=== PATIENT | female | born 1945 | race African-American/Black ===

== ENCOUNTER 2020-09-14 22:58 | Observation (INO) | payer MEDICARE ==
[~2020-09-14] VITALS: Ht 157.5 cm; Wt 59.7 kg
--- NOTE | 2020-09-14 23:13 | ED.ADGEN ---
General Adult HPI: HPI: Patient is a 75 year old female brought in by EMS for multiple complaints. 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 Patient states she also felt more short of breath. Says the pain is gone right now. Patient has a history of CAD with stents and an implanted pacemakerdefibrillator, hypertension, diabetes, and possibly COPD. Patient still a smoker. States she has been hydrating well throughout the day Review of Systems: Review of Systems: All other systems within normal limits except for as noted in the HPI Current Medications: Current Medications Medications (Trade) Dose Ordered Sig/Edmar Start Time Stop Time Status Last Admin Dose Admin Acetaminophen (Tylenol) 650 mg PRN Q4HRS PRN 09/15/20 01:15 09/16/20 01:14 Fentanyl Citrate (Fentanyl 2ml Vial) 50 mcg PRN Q1HR PRN 09/15/20 01:15 09/16/20 01:14 Ondansetron HCl (Zofran) 4 mg PRN Q8HRS PRN 09/15/20 01:15 09/16/20 01:14 Sodium Chloride 1,000 ml @ 1,000 mls/hr 1X ONCE 09/15/20 00:00 09/15/20 00:59 DC 09/14/20 23:55 1,000 MLS/HR Allergies: Allergies: Allergies Coded Allergies Type Severity Reaction Last Updated Verified No Known Drug Allergies 09/14/20 No Physical Exam: PE: Constitutional: Well developed, well nourished, no acute distress, non-toxic appearance. [] HENT: Normocephalic, atraumatic, bilateral external ears normal, nose normal. [] Eyes: PERRLA, conjunctiva normal, no discharge. [] Neck: No rigidity, supple, no stridor. [] Cardiovascular: Regular rate and rhythm, brisk cap refill [] Lungs & Thorax: Non labored symmetric respirations, no tachypnea or respiratory distress [] Abdomen: Soft, nondistended, epigastric tenderness. Skin: Warm, dry, no erythema, no rash. [] Back: Unremarkable Extremities: No deformities, range of motion grossly intact, no lower extremity edema [] Neurologic: Alert and oriented X 3, no focal deficits noted. [] Psychologic: Affect normal, judgement normal, mood normal. [] Current Patient Data: Labs: Laboratory Tests Test 09/14/20 23:15 09/15/20 00:23 White Blood Count 4.8 x10^3/uL (4.0-11.0) Red Blood Count 2.93 x10^6/uL (3.50-5.40) L Hemoglobin 8.7 g/dL (12.0-15.5) L Hematocrit 26.3 % (36.0-47.0) L Mean Corpuscular Volume 90 fL (79-100) Mean Corpuscular Hemoglobin 30 pg (25-35) Mean Corpuscular Hemoglobin Concent 33 g/dL (31-37) Red Cell Distribution Width 15.5 % (11.5-14.5) H Platelet Count 249 x10^3/uL (140-400) Neutrophils (%) (Auto) 64 % (31-73) Lymphocytes (%) (Auto) 26 % (24-48) Monocytes (%) (Auto) 7 % (0-9) Eosinophils (%) (Auto) 2 % (0-3) Basophils (%) (Auto) 1 % (0-3) Neutrophils # (Auto) 3.1 x10^3/uL (1.8-7.7) Lymphocytes # (Auto) 1.2 x10^3/uL (1.0-4.8) Monocytes # (Auto) 0.4 x10^3/uL (0.0-1.1) Eosinophils # (Auto) 0.1 x10^3/uL (0.0-0.7) Basophils # (Auto) 0.1 x10^3/uL (0.0-0.2) Sodium Level 144 mmol/L (136-145) Potassium Level 3.5 mmol/L (3.5-5.1) Chloride Level 106 mmol/L (98-107) Carbon Dioxide Level 23 mmol/L (21-32) Anion Gap 15 (6-14) H Blood Urea Nitrogen 24 mg/dL (7-20) H Creatinine 2.0 mg/dL (0.6-1.0) H Estimated GFR (Cockcroft-Gault) 24.3 BUN/Creatinine Ratio 12 (6-20) Glucose Level 117 mg/dL (70-99) H Calcium Level 8.6 mg/dL (8.5-10.1) Magnesium Level 1.8 mg/dL (1.8-2.4) Total Bilirubin 0.3 mg/dL (0.2-1.0) Aspartate Amino Transferase (AST) 12 U/L (15-37) L Alanine Aminotransferase (ALT) 12 U/L (14-59) L Alkaline Phosphatase 42 U/L (46-116) L Troponin I Quantitative < 0.017 ng/mL (0.000-0.055) FM-Czl-K-Type Natriuretic Peptide 1025 pg/mL (0-449) H Total Protein 7.1 g/dL (6.4-8.2) Albumin 3.7 g/dL (3.4-5.0) Albumin/Globulin Ratio 1.1 (1.0-1.7) Lipase 90 U/L (73-393) Prothrombin Time 29.0 SEC (11.7-14.0) H Prothrombin Time INR 2.8 (0.8-1.1) H D-Dimer (Mary) < 0.27 ug/mlFEU Laboratory Tests 09/14/20 23:15 Laboratory Tests 09/14/20 23:15 Vital Signs: Vital Signs Date Time Temp Pulse Resp B/P (MAP) Pulse Ox O2 Delivery O2 Flow Rate FiO2 09/15/20 01:39 62 30 134/63 (86) 99 Room Air 09/14/20 23:00 99.3 99.3 EKG: EKG: Sinus rhythm, left axis deviation, heart rate 70 bpm, multiple PVCs, ST depression and T wave inversions in V5 V6 [] Heart Score: C/O Chest Pain: No HEART Score for Chest Pain: HEART Score for Chest Pain Response (Comments) Value History Slighlty/Non-Suspicious 0 ECG Nonspecific Repolarizatio 1 Age > 65 2 Risk Factors >3 Risk Factors or Hx CAD 2 Troponin < Normal Limit 0 Total 5 Risk Factors: Risk Factors: DM, Current or recent (<one month) smoker, HTN, HLP, family history of CAD, obesity. Risk Scores: Score 0 - 3: 2.5% MACE over next 6 weeks - Discharge Home Score 4 - 6: 20.3% MACE over next 6 weeks - Admit for Clinical Observation Score 7 - 10: 72.7% MACE over next 6 weeks - Early Invasive Strategies Radiology/Procedures: Radiology/Procedures: [facility] [address] [place] [address] IMAGING REPORT Signed PATIENT: JAYLYN BREWER ACCOUNT: [id number] : 1945 LOCATION: ER AGE: 75 SEX: F EXAM STATUS: REG ER ORD. PHYSICIAN: KENTON BURNETT MD REASON: epigastric pain PROCEDURE: ACUTE ABDOMEN SERIES EXAMINATION: XR ABDOMEN COMP ACUTE CLINICAL HISTORY: Epigastric pain EXAM DATE/TIME: 09/15/2020 1:07 AM COMPARISON: None FINDINGS: Lines, Tubes, and Devices: Left-sided dual-chamber biventricular cardiac pacemaker/ICD. Cardiomediastinal Silhouette: Normal heart size. Aortic atherosclerotic calcification. Lungs and Pleura: No evidence of focal airspace consolidation or pleural effusion. Pulmonary vasculature unremarkable. Old calcified granulomatous disease. Bones and Soft Tissues: Median sternotomy wires and paramediastinal surgical clips. Incomplete posterior vertebral fusion at multiple levels of the upper thoracic spine. Thoracolumbar degenerative changes. Abdomen: Nonobstructive bowel gas pattern. No evidence of pneumoperitoneum or suspicious abdominal calcifications. IMPRESSION: Nonobstructive bowel gas pattern. No evidence of acute cardiopulmonary abnormality. Electronically signed by: Ron Ma DO (09/15/2020 2:13 AM) [facility] DICTATED and SIGNED BY: RON MA DO DATE: 09/15/20 [id number] [] Course & Med Decision Making: Course & Med Decision Making Pertinent Labs and Imaging studies reviewed. (See chart for details) [] Limited for observation due to near syncopal episode happened during exertion in the setting of heart failure and anemia Dragon Disclaimer: Dragon Disclaimer: This electronic medical record was generated, in whole or in part, using a voice recognition dictation system. Departure Departure Impression: Primary Impression: Near syncope Disposition: ADMITTED INPATIENT Admitting Physician: FROY Condition: STABLE KENTON BURNETT MD Sep 14, 2020 23:13
[2020-09-14 23:28] LABS: BASO # 0.1 x10^3/uL (0.0-0.2); BASO % 1 % (0-3); EOS # 0.1 x10^3/uL (0.0-0.7); EOS % 2 % (0-3); HEMATOCRIT 26.3 % (36.0-47.0); HEMOGLOBIN 8.7 g/dL (12.0-15.5); LYMPH # 1.2 x10^3/uL (1.0-4.8); LYMPH % 26 % (24-48); MEAN CORPUSCULAR HEMOGLOBIN 30 pg (25-35); MEAN CORPUSCULAR HGB CONC 33 g/dL (31-37); MEAN CORPUSCULAR VOLUME 90 fL (79-100); MONO # 0.4 x10^3/uL (0.0-1.1); MONO % 7 % (0-9); NEUT # 3.1 x10^3/uL (1.8-7.7); NEUT % 64 % (31-73); PLATELET COUNT 249 x10^3/uL (140-400); RED BLOOD COUNT 2.93 x10^6/uL (3.50-5.40); RED CELL DISTRIBUTION WIDTH 15.5 % (11.5-14.5); WHITE BLOOD COUNT 4.8 x10^3/uL (4.0-11.0)
[2020-09-14 23:34] LABS: CALCIUM 8.6 mg/dL (8.5-10.1); GFR 24.3; POTASSIUM 3.5 mmol/L (3.5-5.1)
[2020-09-14 23:40] LABS: ALBUMIN 3.7 g/dL (3.4-5.0); ALBUMIN/GLOBULIN RATIO 1.1 (1.0-1.7); MAGNESIUM 1.8 mg/dL (1.8-2.4); TOTAL BILIRUBIN 0.3 mg/dL (0.2-1.0); TOTAL PROTEIN 7.1 g/dL (6.4-8.2)
--- NOTE | 2020-09-14 23:59 | EKG ---
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
[2020-09-15] MEDS ORDERED: IV NORMAL SALINE 1000ML BAG 1,000 ML IV ONE
[2020-09-15 00:45] LABS: D-DIMER < 0.27 ug/mlFEU (0.00-0.50)
[2020-09-15] MEDS ORDERED: ONDANSETRON PF 4 MG/2 ML VIAL. IV PRN (01:15)
[2020-09-15] MEDS ORDERED: ACETAMINOPHEN 325 MG TABLET. PO PRN ×2 (01:15→07:15)
[2020-09-15] MEDS ORDERED: fentaNYL PF VIAL 100 MCG/2 ML VIAL IV PRN (01:15)
--- NOTE | 2020-09-15 02:15 | RAD ---
EXAMINATION: XR ABDOMEN COMP ACUTE CLINICAL HISTORY: Epigastric pain EXAM DATE/TIME: 09/15/2020 1:07 AM COMPARISON: None FINDINGS: Lines, Tubes, and Devices: Left-sided dual-chamber biventricular cardiac pacemaker/ICD. Cardiomediastinal Silhouette: Normal heart size. Aortic atherosclerotic calcification. Lungs and Pleura: No evidence of focal airspace consolidation or pleural effusion. Pulmonary vasculat ure unremarkable. Old calcified granulomatous disease. Bones and Soft Tissues: Median sternotomy wires and paramediastinal surgical clips. 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 Thoracolumbar degenerative villanueva es. Abdomen: Nonobstructive bowel gas pattern. No evidence of pneumoperitoneum or suspicious abdominal ca lcifications. IMPRESSION: Nonobstructive bowel gas pattern. No evidence of acute cardiopulmonary abnormality. Electronically signed by: Ron Timmons DO (09/15/2020 2:13 AM) [facility]
--- NOTE | 2020-09-15 07:00 | PDOC1 ---
History and Physical Date of Admission Date of Admission DATE: 09/15/20 TIME: 06:53 Identification/Chief Complaint Chief Complaint Near syncope Source Source: Chart review, Patient History of Present Illness History of Present Illness Patient 75-year-old female past medical history DE, CAD with ICD, HTN, DM 2, presents to the ED for evaluation after near syncopal episode yesterday. He states she was working outside yesterday and walking up a hill when she began to feel dizzy, nauseous, and lightheaded. She reports some associated vomiting x1, but states she did not lose consciousness. He states she was hydrating throughout the day yesterday. She does report chronic back pain and did have one episode of left-sided chest pain, she states is not uncommon for her. Labs in ED showed hemoglobin 8.7, hematocrit 26.3, BUN 24, creatinine 2.0, CBG 117, BNP 1025, and troponins 0.017x2. EKG shows sinus rhythm, PVC, and evidence of prior anterior septal myocardial damage. Acute abdominal series showed nonobstructive bowel gas pattern and no evidence of acute cardiopulmonary abnormality. She received IV fluids in the ED and admitted for further medical management. Past Medical History Past Medical History DE, CAD with pacemaker, HTN, DM 2 Family History Family History: Coronary Artery Disease Social History Smoke: <1 pack per day ALCOHOL: occassional Drugs: None Current Medications Current Medications Current Medications Sodium Chloride 1,000 ml @ 1,000 mls/hr 1X ONCE IV Last administered on 09/14/20at 23:55; Start 09/15/20 at 00:00; Stop 09/15/20 at 00:59; Status DC Ondansetron HCl (Zofran) 4 mg PRN Q8HRS PRN IV NAUSEA/VOMITING; Start 09/15/20 at 01:15; Stop 09/16/20 at 01:14 Fentanyl Citrate (Fentanyl 2ml Vial) 50 mcg PRN Q1HR PRN IV PAIN; Start 09/15/20 at 01:15; Stop 09/16/20 at 01:14 Acetaminophen (Tylenol) 650 mg PRN Q4HRS PRN PO FEVER > 100.3'F; Start 09/15/20 at 01:15; Stop 09/16/20 at 01:14 Allergies Allergies: Coded Allergies: No Known Drug Allergies (Unverified , 09/14/20) ROS Review of System GENERAL: No history of weight change, weakness or fevers. SKIN: No bruising, hair changes or rashes. EYES: No blurred, double or loss of vision. NOSE AND THROAT: No history of nosebleeds, hoarseness or sore throat. HEART: Denies chest pain, denies palpitations. LUNGS: Denies cough, hemoptysis, wheezing or shortness of breath. GASTROINTESTINAL: Nausea, vomiting, abdominal pain. GENITOURINARY: Denies dysuria, frequency, urgency, hematuria. NEUROLOGIC: Dizziness and lightheadedness. Denies history of numbness, tingling, tremor or weakness. PSYCHIATRIC: Denies anxiety, denies depression. ENDOCRINE: No history of heat or cold intolerance, polyuria or polydipsia. EXTREMITIES: Denies muscle weakness, joint pain, pain on walking or stiffness. Physical Exam Physical Exam General: Alert, Oriented X3, Cooperative, No acute distress HEENT: PERRLA, EOMI Lungs: Clear to auscultation, Normal air movement Heart: RRR, systolic murmur, pacemakerdefibrillator to left chest wall Cardiovascular: S1, S2 Abdomen: Normal bowel sounds, Soft, No tenderness Extremities: No clubbing, No cyanosis Skin: No rashes, No significant lesion Neuro: Normal speech, Normal tone, Sensation intact Psych/Mental Status: Mental status NL, Mood NL Vitals Vitals Vital Signs Date Time Temp Pulse Resp B/P (MAP) Pulse Ox O2 Delivery O2 Flow Rate FiO2 09/15/20 03:54 54 13 131/59 (83) 97 Room Air 09/14/20 23:00 99.3 99.3 Labs Labs Laboratory Tests Test 09/14/20 23:15 09/15/20 00:23 09/15/20 04:50 White Blood Count 4.8 x10^3/uL (4.0-11.0) Red Blood Count 2.93 x10^6/uL (3.50-5.40) Hemoglobin 8.7 g/dL (12.0-15.5) Hematocrit 26.3 % (36.0-47.0) Mean Corpuscular Volume 90 fL (79-100) Mean Corpuscular Hemoglobin 30 pg (25-35) Mean Corpuscular Hemoglobin Concent 33 g/dL (31-37) Red Cell Distribution Width 15.5 % (11.5-14.5) Platelet Count 249 x10^3/uL (140-400) Neutrophils (%) (Auto) 64 % (31-73) Lymphocytes (%) (Auto) 26 % (24-48) Monocytes (%) (Auto) 7 % (0-9) Eosinophils (%) (Auto) 2 % (0-3) Basophils (%) (Auto) 1 % (0-3) Neutrophils # (Auto) 3.1 x10^3/uL (1.8-7.7) Lymphocytes # (Auto) 1.2 x10^3/uL (1.0-4.8) Monocytes # (Auto) 0.4 x10^3/uL (0.0-1.1) Eosinophils # (Auto) 0.1 x10^3/uL (0.0-0.7) Basophils # (Auto) 0.1 x10^3/uL (0.0-0.2) Sodium Level 144 mmol/L (136-145) Potassium Level 3.5 mmol/L (3.5-5.1) Chloride Level 106 mmol/L (98-107) Carbon Dioxide Level 23 mmol/L (21-32) Anion Gap 15 (6-14) Blood Urea Nitrogen 24 mg/dL (7-20) Creatinine 2.0 mg/dL (0.6-1.0) Estimated GFR (Cockcroft-Gault) 24.3 BUN/Creatinine Ratio 12 (6-20) Glucose Level 117 mg/dL (70-99) Calcium Level 8.6 mg/dL (8.5-10.1) Magnesium Level 1.8 mg/dL (1.8-2.4) Total Bilirubin 0.3 mg/dL (0.2-1.0) Aspartate Amino Transf (AST/SGOT) 12 U/L (15-37) Alanine Aminotransferase (ALT/SGPT) 12 U/L (14-59) Alkaline Phosphatase 42 U/L (46-116) Troponin I Quantitative < 0.017 ng/mL (0.000-0.055) < 0.017 ng/mL (0.000-0.055) SK-Yer-U-Type Natriuretic Peptide 1025 pg/mL (0-449) Total Protein 7.1 g/dL (6.4-8.2) Albumin 3.7 g/dL (3.4-5.0) Albumin/Globulin Ratio 1.1 (1.0-1.7) Lipase 90 U/L (73-393) Prothrombin Time 29.0 SEC (11.7-14.0) Prothromb Time International Ratio 2.8 (0.8-1.1) D-Dimer (Mary) < 0.27 ug/mlFEU Laboratory Tests Test 09/14/20 23:15 09/15/20 00:23 09/15/20 04:50 White Blood Count 4.8 x10^3/uL (4.0-11.0) Red Blood Count 2.93 x10^6/uL (3.50-5.40) Hemoglobin 8.7 g/dL (12.0-15.5) Hematocrit 26.3 % (36.0-47.0) Mean Corpuscular Volume 90 fL (79-100) Mean Corpuscular Hemoglobin 30 pg (25-35) Mean Corpuscular Hemoglobin Concent 33 g/dL (31-37) Red Cell Distribution Width 15.5 % (11.5-14.5) Platelet Count 249 x10^3/uL (140-400) Neutrophils (%) (Auto) 64 % (31-73) Lymphocytes (%) (Auto) 26 % (24-48) Monocytes (%) (Auto) 7 % (0-9) Eosinophils (%) (Auto) 2 % (0-3) Basophils (%) (Auto) 1 % (0-3) Neutrophils # (Auto) 3.1 x10^3/uL (1.8-7.7) Lymphocytes # (Auto) 1.2 x10^3/uL (1.0-4.8) Monocytes # (Auto) 0.4 x10^3/uL (0.0-1.1) Eosinophils # (Auto) 0.1 x10^3/uL (0.0-0.7) Basophils # (Auto) 0.1 x10^3/uL (0.0-0.2) Sodium Level 144 mmol/L (136-145) Potassium Level 3.5 mmol/L (3.5-5.1) Chloride Level 106 mmol/L (98-107) Carbon Dioxide Level 23 mmol/L (21-32) Anion Gap 15 (6-14) Blood Urea Nitrogen 24 mg/dL (7-20) Creatinine 2.0 mg/dL (0.6-1.0) Estimated GFR (Cockcroft-Gault) 24.3 BUN/Creatinine Ratio 12 (6-20) Glucose Level 117 mg/dL (70-99) Calcium Level 8.6 mg/dL (8.5-10.1) Magnesium Level 1.8 mg/dL (1.8-2.4) Total Bilirubin 0.3 mg/dL (0.2-1.0) Aspartate Amino Transf (AST/SGOT) 12 U/L (15-37) Alanine Aminotransferase (ALT/SGPT) 12 U/L (14-59) Alkaline Phosphatase 42 U/L (46-116) Troponin I Quantitative < 0.017 ng/mL (0.000-0.055) < 0.017 ng/mL (0.000-0.055) FZ-Asz-K-Type Natriuretic Peptide 1025 pg/mL (0-449) Total Protein 7.1 g/dL (6.4-8.2) Albumin 3.7 g/dL (3.4-5.0) Albumin/Globulin Ratio 1.1 (1.0-1.7) Lipase 90 U/L (73-393) Prothrombin Time 29.0 SEC (11.7-14.0) Prothromb Time International Ratio 2.8 (0.8-1.1) D-Dimer (Mary) < 0.27 ug/mlFEU Images Images PATIENT: JAYLYN BREWER ACCOUNT: [id number] : 1945 LOCATION: ER AGE: 75 SEX: F EXAM STATUS: REG ER ORD. PHYSICIAN: KENTON BURNETT MD REASON: epigastric pain PROCEDURE: ACUTE ABDOMEN SERIES EXAMINATION: XR ABDOMEN COMP ACUTE CLINICAL HISTORY: Epigastric pain EXAM DATE/TIME: 09/15/2020 1:07 AM COMPARISON: None FINDINGS: Lines, Tubes, and Devices: Left-sided dual-chamber biventricular cardiac pacemaker/ICD. Cardiomediastinal Silhouette: Normal heart size. Aortic atherosclerotic calcification. Lungs and Pleura: No evidence of focal airspace consolidation or pleural effusion. Pulmonary vasculature unremarkable. Old calcified granulomatous disease. Bones and Soft Tissues: Median sternotomy wires and paramediastinal surgical clips. Incomplete posterior vertebral fusion at multiple levels of the upper thoracic spine. Thoracolumbar degenerative changes. Abdomen: Nonobstructive bowel gas pattern. No evidence of pneumoperitoneum or suspicious abdominal calcifications. IMPRESSION: Nonobstructive bowel gas pattern. No evidence of acute cardiopulmonary abnormality. VTE Prophylaxis Ordered VTE Prophylaxis Devices: No VTE Pharmacological Prophylaxi: Yes Assessment/Plan Assessment/Plan Near syncope CAD History of DE Renal insufficiency HTN Plan: Troponins have been negative x2; will continue to trend. Consultation placed to cardiology. Obtain echocardiogram to further evaluate Suspect vasovagal etiology Unknown baseline kidney function; will continue to hydrate Resume home medications FEN - Cardiac diet PPX - Heparin FULL CODE Dispo - OBS for above Advance Care Planning: Total time spent [id number] with patient 16 minutes in discussion with goals of care, comfort care, end-of-life care, pain management, code status; patient names her daughter (Rishabh Mon) as surrogate decision-maker. Justifications for Admission Other Justification JOVANI ECHOLS MD Sep 15, 2020 07:00
[2020-09-15] MEDS ORDERED: MAGNESIUM HYDROXIDE 2,400 MG/30 ML ORAL.SUSP. PO PRN (07:15)
[2020-09-15] MEDS ORDERED: ONDANSETRON PF 4 MG/2 ML VIAL. IVP PRN (07:15)
[2020-09-15] MEDS ORDERED: CALCIUM CARBONATE 500 MG TAB.CHEW PO PRN (07:15)
[2020-09-15] MEDS ORDERED: MAG HYDROX/ALUMINUM HYD/SIMETH 30 ML ORAL.SUSP PO PRN (07:15)
[2020-09-15] MEDS ORDERED: HYDROcodone/APAP 5/325MG 1 TAB TABLET PO PRN (07:15)
[2020-09-15 08:30] VITALS: BP 127/67
[2020-09-15] MEDS ORDERED: HEPARIN for SUB-Q USE 5,000 UNIT/ML VIAL. SQ SCH (09:00)
[2020-09-15 10:32] LABS: CALCIUM 8.3 mg/dL (8.5-10.1); CREATININE 1.3 mg/dL (0.6-1.0); GFR 48.3; POTASSIUM 3.8 mmol/L (3.5-5.1)
[2020-09-15 11:00] VITALS: BP_SYST 102; BP_SYST 104; BP_SYST 110; BP_DIAS 49; BP_DIAS 55; BP_DIAS 57
--- NOTE | 2020-09-15 11:38 | PDOC2 ---
CONSULT Date of Consult Date of Consult DATE: 09/15/20 TIME: 11:38 Reason for Consult Reason for Consult: Near syncope Referring Physician Referring Physician: Dr. Hamilton Identification/Chief Complaint Chief Complaint Near syncope Source Source: Chart review, Patient History of Present Illness Reason for Visit: 75-year-old female with history of coronary artery disease s/p coronary artery bypass surgery, ischemic cardiomyopathy s/p AICD implantation 10 years ago with more recent generator change 2 months ago, usually followed by Dr. Claude Singer with [facility] apparently was started walking uphill after working outside in the heat and began feeling dizzy, nauseous, had an episode of vomiting and had near syncope. She denied any syncope near syncope in the past. She also denied any chest pain, orthopnea/PND or palpitations. She denied any ICD firing episodes. Past Medical History Past Medical History Coronary artery disease s/p coronary artery bypass surgery 10 years ago Ischemic cardiomyopathy s/p AICD implantation 10 years ago with more recent generator change 2 months ago Hypertension ? Paroxysmal atrial fibrillation since patient is on Xarelto Chronic kidney disease Past Surgical History Past Surgical History Coronary artery bypass surgery AICD implantation Family History Family History: Coronary Artery Disease Social History <1 pack per day ALCOHOL: occassional Drugs: None Current Medications Current Medications Current Medications Sodium Chloride 1,000 ml @ 1,000 mls/hr 1X ONCE IV Last administered on 09/14/20at 23:55; Start 09/15/20 at 00:00; Stop 09/15/20 at 00:59; Status DC Ondansetron HCl (Zofran) 4 mg PRN Q8HRS PRN IV NAUSEA/VOMITING; Start 09/15/20 at 01:15; Stop 09/15/20 at 07:31; Status DC Fentanyl Citrate (Fentanyl 2ml Vial) 50 mcg PRN Q1HR PRN IV PAIN; Start 09/15/20 at 01:15; Stop 09/16/20 at 01:14 Acetaminophen (Tylenol) 650 mg PRN Q4HRS PRN PO FEVER > 100.3'F; Start 09/15/20 at 01:15; Stop 09/15/20 at 07:31; Status DC Ondansetron HCl (Zofran) 4 mg PRN Q6HRS PRN IVP NAUSEA/VOMITING; Start 09/15/20 at 07:15 Al Hydroxide/Mg Hydroxide (Mylanta Plus Xs) 30 ml PRN Q3HRS PRN PO HEARTBURN / GAS; Start 09/15/20 at 07:15 Calcium Carbonate/ Glycine (Tums) 500 mg PRN Q3HRS PRN PO UPSET STOMACH; Start 09/15/20 at 07:15 Acetaminophen/ Hydrocodone Bitart (Lortab 5/325) 1 tab PRN Q4HRS PRN PO MILD PAIN 1-3; Start 09/15/20 at 07:15 Acetaminophen (Tylenol) 650 mg PRN Q6HRS PRN PO Headaches, Temp > 101.5F; Start 09/15/20 at 07:15 Magnesium Hydroxide (Milk Of Magnesia) 2,400 mg PRN Q12HR PRN PO CONSTIPATION; Start 09/15/20 at 07:15 Heparin Sodium (Porcine) (Heparin Sodium) 5,000 unit Q12HR SQ ; Start 09/15/20 at 09:00 Allergies Allergies: Coded Allergies: No Known Drug Allergies (Unverified , 09/14/20) ROS PSYCHOLOGICAL ROS: No: Hallucinations Eyes: No Loss of vision HEENT: No: Epistaxis Respiratory: No: Hemoptysis, Shortness of breath Gastrointestinal: No Vomiting Genitourinary: No Hematuria Neurological: No Seizures Skin: No Rash Physical Exam General: Alert, Oriented X3 HEENT: Atraumatic Lungs: Clear to auscultation Heart: Regular rate Abdomen: Soft Extremities: No edema Neuro: Normal speech Psych/Mental Status: Mood NL Vitals VITALS Vital Signs Date Time Temp Pulse Resp B/P (MAP) Pulse Ox O2 Delivery O2 Flow Rate FiO2 09/15/20 08:30 97.9 53 16 127/67 (87) 93 Room Air 97.9 Labs Labs Laboratory Tests Test 09/14/20 23:15 09/15/20 00:23 09/15/20 04:50 09/15/20 09:45 White Blood Count 4.8 x10^3/uL (4.0-11.0) Red Blood Count 2.93 x10^6/uL (3.50-5.40) Hemoglobin 8.7 g/dL (12.0-15.5) Hematocrit 26.3 % (36.0-47.0) Mean Corpuscular Volume 90 fL (79-100) Mean Corpuscular Hemoglobin 30 pg (25-35) Mean Corpuscular Hemoglobin Concent 33 g/dL (31-37) Red Cell Distribution Width 15.5 % (11.5-14.5) Platelet Count 249 x10^3/uL (140-400) Neutrophils (%) (Auto) 64 % (31-73) Lymphocytes (%) (Auto) 26 % (24-48) Monocytes (%) (Auto) 7 % (0-9) Eosinophils (%) (Auto) 2 % (0-3) Basophils (%) (Auto) 1 % (0-3) Neutrophils # (Auto) 3.1 x10^3/uL (1.8-7.7) Lymphocytes # (Auto) 1.2 x10^3/uL (1.0-4.8) Monocytes # (Auto) 0.4 x10^3/uL (0.0-1.1) Eosinophils # (Auto) 0.1 x10^3/uL (0.0-0.7) Basophils # (Auto) 0.1 x10^3/uL (0.0-0.2) Sodium Level 144 mmol/L (136-145) 144 mmol/L (136-145) Potassium Level 3.5 mmol/L (3.5-5.1) 3.8 mmol/L (3.5-5.1) Chloride Level 106 mmol/L (98-107) 108 mmol/L (98-107) Carbon Dioxide Level 23 mmol/L (21-32) 24 mmol/L (21-32) Anion Gap 15 (6-14) 12 (6-14) Blood Urea Nitrogen 24 mg/dL (7-20) 21 mg/dL (7-20) Creatinine 2.0 mg/dL (0.6-1.0) 1.3 mg/dL (0.6-1.0) Estimated GFR (Cockcroft-Gault) 24.3 48.3 BUN/Creatinine Ratio 12 (6-20) Glucose Level 117 mg/dL (70-99) 100 mg/dL (70-99) Calcium Level 8.6 mg/dL (8.5-10.1) 8.3 mg/dL (8.5-10.1) Magnesium Level 1.8 mg/dL (1.8-2.4) Total Bilirubin 0.3 mg/dL (0.2-1.0) Aspartate Amino Transf (AST/SGOT) 12 U/L (15-37) Alanine Aminotransferase (ALT/SGPT) 12 U/L (14-59) Alkaline Phosphatase 42 U/L (46-116) Troponin I Quantitative < 0.017 ng/mL (0.000-0.055) < 0.017 ng/mL (0.000-0.055) < 0.017 ng/mL (0.000-0.055) PG-Oiu-Y-Type Natriuretic Peptide 1025 pg/mL (0-449) Total Protein 7.1 g/dL (6.4-8.2) Albumin 3.7 g/dL (3.4-5.0) Albumin/Globulin Ratio 1.1 (1.0-1.7) Lipase 90 U/L (73-393) Prothrombin Time 29.0 SEC (11.7-14.0) Prothromb Time International Ratio 2.8 (0.8-1.1) D-Dimer (Mary) < 0.27 ug/mlFEU Laboratory Tests Test 09/14/20 23:15 09/15/20 00:23 09/15/20 04:50 09/15/20 09:45 White Blood Count 4.8 x10^3/uL (4.0-11.0) Red Blood Count 2.93 x10^6/uL (3.50-5.40) Hemoglobin 8.7 g/dL (12.0-15.5) Hematocrit 26.3 % (36.0-47.0) Mean Corpuscular Volume 90 fL (79-100) Mean Corpuscular Hemoglobin 30 pg (25-35) Mean Corpuscular Hemoglobin Concent 33 g/dL (31-37) Red Cell Distribution Width 15.5 % (11.5-14.5) Platelet Count 249 x10^3/uL (140-400) Neutrophils (%) (Auto) 64 % (31-73) Lymphocytes (%) (Auto) 26 % (24-48) Monocytes (%) (Auto) 7 % (0-9) Eosinophils (%) (Auto) 2 % (0-3) Basophils (%) (Auto) 1 % (0-3) Neutrophils # (Auto) 3.1 x10^3/uL (1.8-7.7) Lymphocytes # (Auto) 1.2 x10^3/uL (1.0-4.8) Monocytes # (Auto) 0.4 x10^3/uL (0.0-1.1) Eosinophils # (Auto) 0.1 x10^3/uL (0.0-0.7) Basophils # (Auto) 0.1 x10^3/uL (0.0-0.2) Sodium Level 144 mmol/L (136-145) 144 mmol/L (136-145) Potassium Level 3.5 mmol/L (3.5-5.1) 3.8 mmol/L (3.5-5.1) Chloride Level 106 mmol/L (98-107) 108 mmol/L (98-107) Carbon Dioxide Level 23 mmol/L (21-32) 24 mmol/L (21-32) Anion Gap 15 (6-14) 12 (6-14) Blood Urea Nitrogen 24 mg/dL (7-20) 21 mg/dL (7-20) Creatinine 2.0 mg/dL (0.6-1.0) 1.3 mg/dL (0.6-1.0) Estimated GFR (Cockcroft-Gault) 24.3 48.3 BUN/Creatinine Ratio 12 (6-20) Glucose Level 117 mg/dL (70-99) 100 mg/dL (70-99) Calcium Level 8.6 mg/dL (8.5-10.1) 8.3 mg/dL (8.5-10.1) Magnesium Level 1.8 mg/dL (1.8-2.4) Total Bilirubin 0.3 mg/dL (0.2-1.0) Aspartate Amino Transf (AST/SGOT) 12 U/L (15-37) Alanine Aminotransferase (ALT/SGPT) 12 U/L (14-59) Alkaline Phosphatase 42 U/L (46-116) Troponin I Quantitative < 0.017 ng/mL (0.000-0.055) < 0.017 ng/mL (0.000-0.055) < 0.017 ng/mL (0.000-0.055) QA-Cpe-X-Type Natriuretic Peptide 1025 pg/mL (0-449) Total Protein 7.1 g/dL (6.4-8.2) Albumin 3.7 g/dL (3.4-5.0) Albumin/Globulin Ratio 1.1 (1.0-1.7) Lipase 90 U/L (73-393) Prothrombin Time 29.0 SEC (11.7-14.0) Prothromb Time International Ratio 2.8 (0.8-1.1) D-Dimer (Mary) < 0.27 ug/mlFEU Assessment/Plan Assessment/Plan 1. Near syncope, most probably vasovagal. Telemetry did not show any significant arrhythmias so far. Continue intravenous hydration. 2. Coronary artery disease s/p coronary artery bypass surgery 10 years ago, presently stable and chest pain-free. Cardiac enzymes negative. Continue c urrent secondary prevention measures. 3. Ischemic cardiomyopathy, chronic systolic heart failure s/p AICD implantation 10 years ago with more recent generator change 2 months ago. We will obtain records from [facility]. 4. ? Paroxysmal atrial fibrillation since patient is on Xarelto. Patient could not give any history of cardiac arrhythmias. We will review records when available from [facility]. EKG showed atrial paced rhythm. 5. Diabetes mellitus type 2: Treat per IM Thank you for your consultation DIONI CANDELARIA MD Sep 15, 2020 11:38
[2020-09-15 15:00] VITALS: BP 111/64
[2020-09-15] MEDS ORDERED: ACETAMINOPHEN/CODEINE 300/30MG TABLET. PO PRN (15:45)
[2020-09-15] MEDS ORDERED: traMADol 50 MG TABLET PO PRN (15:45)
[2020-09-15] MEDS: CARVEDILOL 6.25 MG TABLET. PO SCH (16:52)
[2020-09-15] MEDS ORDERED: RIVAROXABAN 10 MG TABLET. PO SCH (17:00)
[2020-09-15] MEDS: ALBUTEROL SULFATE 2.5 MG/3 ML NEBU. NEB SCH ×2 (17:54→20:26)
[2020-09-15 19:00] VITALS: BP 105/55
[2020-09-15 23:05] VITALS: BP 104/60
[2020-09-16 03:14] VITALS: BP 123/70
[2020-09-16 05:07] LABS: BASO % 1 % (0-3); EOS # 0.1 x10^3/uL (0.0-0.7); EOS % 4 % (0-3); HEMATOCRIT 23.6 % (36.0-47.0); HEMOGLOBIN 7.6 g/dL (12.0-15.5); LYMPH # 1.3 x10^3/uL (1.0-4.8); LYMPH % 43 % (24-48); MEAN CORPUSCULAR HEMOGLOBIN 29 pg (25-35); MEAN CORPUSCULAR HGB CONC 32 g/dL (31-37); MEAN CORPUSCULAR VOLUME 90 fL (79-100); MONO # 0.3 x10^3/uL (0.0-1.1); MONO % 11 % (0-9); NEUT # 1.2 x10^3/uL (1.8-7.7); NEUT % 42 % (31-73); PLATELET COUNT 211 x10^3/uL (140-400); RED BLOOD COUNT 2.62 x10^6/uL (3.50-5.40); RED CELL DISTRIBUTION WIDTH 15.9 % (11.5-14.5); WHITE BLOOD COUNT 2.9 x10^3/uL (4.0-11.0)
[2020-09-16 05:24] LABS: CALCIUM 8.1 mg/dL (8.5-10.1); CREATININE 1.3 mg/dL (0.6-1.0); GFR 48.3; POTASSIUM 3.4 mmol/L (3.5-5.1); TOTAL BILIRUBIN 0.3 mg/dL (0.2-1.0)
[2020-09-16] MEDS: ALBUTEROL SULFATE 2.5 MG/3 ML NEBU. NEB SCH ×2 (07:09→11:25)
--- NOTE | 2020-09-16 07:41 | PDOC ---
[employer] PROGRESS NOTE Date of Service DOS: DATE: 09/16/20 TIME: 07:32 Chief Complaint Chief Complaint Near syncope CAD History of MD Renal insufficiency HTN Plan: Troponins have been negative x2; will continue to trend. Consultation placed to cardiology. Obtain echocardiogram to further evaluate Suspect vasovagal etiology Unknown baseline kidney function; will continue to hydrate Resume home medications FEN - Cardiac diet PPX - Heparin FULL CODE Dispo - OBS for above Advance Care Planning: Total time spent [id number] with patient 16 minutes in discussion with goals of care, comfort care, end-of-life care, pain management, code status; patient names her daughter (Rishabh Mon) as surrogate decision-maker. History of Present Illness History of Present Illness Patient 75-year-old female past medical history MD, CAD with ICD, HTN, DM 2, presents to the ED for evaluation after near syncopal episode yesterday. He states she was working outside yesterday and walking up a hill when she began to feel dizzy, nauseous, and lightheaded. She reports some associated vomiting x1, but states she did not lose consciousness. He states she was hydrating throughout the day yesterday. She does report chronic back pain and did have one episode of left-sided chest pain, she states is not uncommon for her. Labs in ED showed hemoglobin 8.7, hematocrit 26.3, BUN 24, creatinine 2.0, CBG 117, BNP 1025, and troponins 0.017x2. EKG shows sinus rhythm, PVC, and evidence of prior anterior septal myocardial damage. Acute abdominal series showed nonobstructive bowel gas pattern and no evidence of acute cardiopulmonary abnormality. She received IV fluids in the ED and admitted for further medical management. 09/16/2020: Afebrile. Patient states she feels as though her defibrillator fired this morning, similar to how she felt yesterday prior to coming to the ER. Kidney function appears to be stable at CKD III. Echocardiogram pending. Barring cardiology recommendations, she could potentially discharge today if checked out. Orthostatic vitals negative. Will have PT ambulate with patient to evaluate safety. Vitals/I&O Vitals/I&O: Vital Signs Date Time Temp Pulse Resp B/P (MAP) Pulse Ox O2 Delivery O2 Flow Rate FiO2 09/16/20 07:16 Room Air 6/27/21 07:09 99 09/16/20 03:14 98.0 54 18 123/70 (87) 98.0 I & O 09/15/20 09/15/20 09/16/20 15:00 23:00 07:00 Intake Total 300 ml 300 ml Output Total 0 ml Balance 300 ml 300 ml 0 ml Physical Exam General: Alert, Oriented X3, Cooperative, No acute distress Heart: Other (Bradycardic) Lungs: Clear Abdomen: Normal bowel sounds, Soft, No tenderness Extremities: No clubbing, No cyanosis Skin: No rashes, No breakdown Labs Labs: Laboratory Tests Test 09/15/20 09:45 09/16/20 04:30 Sodium Level 144 mmol/L (136-145) 142 mmol/L (136-145) Potassium Level 3.8 mmol/L (3.5-5.1) 3.4 mmol/L (3.5-5.1) Chloride Level 108 mmol/L (98-107) 107 mmol/L (98-107) Carbon Dioxide Level 24 mmol/L (21-32) 23 mmol/L (21-32) Anion Gap 12 (6-14) 12 (6-14) Blood Urea Nitrogen 21 mg/dL (7-20) 23 mg/dL (7-20) Creatinine 1.3 mg/dL (0.6-1.0) 1.3 mg/dL (0.6-1.0) Estimated GFR (Cockcroft-Gault) 48.3 48.3 Glucose Level 100 mg/dL (70-99) 123 mg/dL (70-99) Calcium Level 8.3 mg/dL (8.5-10.1) 8.1 mg/dL (8.5-10.1) Troponin I Quantitative < 0.017 ng/mL (0.000-0.055) White Blood Count 2.9 x10^3/uL (4.0-11.0) Red Blood Count 2.62 x10^6/uL (3.50-5.40) Hemoglobin 7.6 g/dL (12.0-15.5) Hematocrit 23.6 % (36.0-47.0) Mean Corpuscular Volume 90 fL (79-100) Mean Corpuscular Hemoglobin 29 pg (25-35) Mean Corpuscular Hemoglobin Concent 32 g/dL (31-37) Red Cell Distribution Width 15.9 % (11.5-14.5) Platelet Count 211 x10^3/uL (140-400) Neutrophils (%) (Auto) 42 % (31-73) Lymphocytes (%) (Auto) 43 % (24-48) Monocytes (%) (Auto) 11 % (0-9) Eosinophils (%) (Auto) 4 % (0-3) Basophils (%) (Auto) 1 % (0-3) Neutrophils # (Auto) 1.2 x10^3/uL (1.8-7.7) Lymphocytes # (Auto) 1.3 x10^3/uL (1.0-4.8) Monocytes # (Auto) 0.3 x10^3/uL (0.0-1.1) Eosinophils # (Auto) 0.1 x10^3/uL (0.0-0.7) Basophils # (Auto) 0.0 x10^3/uL (0.0-0.2) BUN/Creatinine Ratio 18 (6-20) Total Bilirubin 0.3 mg/dL (0.2-1.0) Aspartate Amino Transf (AST/SGOT) 13 U/L (15-37) Alanine Aminotransferase (ALT/SGPT) 11 U/L (14-59) Alkaline Phosphatase 40 U/L (46-116) Total Protein 6.0 g/dL (6.4-8.2) Albumin 3.0 g/dL (3.4-5.0) Albumin/Globulin Ratio 1.0 (1.0-1.7) Comment Review of Relevant I have reviewed the following items berna (where applicable) has been applied. Medications: Current Medications Medications (Trade) Dose Ordered Sig/Edmar Route PRN Reason Start Time Stop Time Status Last Admin Dose Admin Heparin Sodium (Porcine) (Heparin Sodium) 5,000 unit Q12HR SQ 09/15/20 09:00 09/15/20 16:34 DC 09/15/20 14:55 Albuterol Sulfate (Ventolin Neb Soln) 2.5 mg RTQID NEB 09/15/20 16:00 09/16/20 07:09 Justifications for Admission Other Justification JOVANI ECHOLS MD Sep 16, 2020 07:41
[2020-09-16 07:59] VITALS: BP 123/65
[2020-09-16] MEDS: CARVEDILOL 6.25 MG TABLET. PO SCH (08:00)
--- NOTE | 2020-09-16 08:58 | NUR ---
This RN spoke with irma Pollard's daughter on the phone with pt present. irma Pollard's daughter stated that she would like pt to be transferred to [facility], as that is where the pt normally goes. This RN informed Latrice that pt would have to sign out AMA if the doctor does not place a discharge order. She verbalizes understanding and is okay with pt signing out AMA. This RN also informed the pt that if she signs out AMA, she would not receive discharge instructions, etc. Potential risks also discussed with pt. Pt verbalizes understanding. Dr. Hamilton notified that pt is requesting to leave AMA. Dr. Hamilton stated that pt may be discharged today pending cardiology's input. Addendum: 09/16/20 at 1032 by ALANIS GUZMÁN RN Pt seen/examined by Dr. Hamilton. Pt agreeable to wait and be evaluated by cardiology.
[2020-09-16] MEDS ORDERED: FUROSEMIDE 80 MG TABLET. PO SCH (09:00)
[2020-09-16] MEDS ORDERED: FAMOTIDINE 20 MG TABLET. PO SCH (09:00)
--- NOTE | 2020-09-16 10:25 | NUR ---
This RN notified Dr. Hamilton in person that pt had a seven beat run of vtach. Awaiting cardiology input.
--- NOTE | 2020-09-16 10:39 | PDOC ---
PROGRESS NOTES Date of Service: DATE: 09/16/20 TIME: 10:38 Subjective Subjective No new complaints Objective Objective Vital Signs Date Time Temp Pulse Resp B/P (MAP) Pulse Ox O2 Delivery O2 Flow Rate FiO2 09/16/20 08:20 Room Air 09/16/20 08:00 50 09/16/20 07:59 98.1 28 123/65 (84) 97 98.1 Intake and Output 09/16/20 07:00 Intake Total 600 ml Output Total 0 ml Balance 600 ml Intake Oral 600 ml Output Urine Total 0 ml Physical Exam Abdomen: Soft Heart: Regular rate Extremities: No edema General: Alert, Oriented X3 HEENT: Atraumatic Lungs: Clear to auscultation Neuro: Normal speech Psych/Mental Status: Mood NL Skin: No rashes, No breakdown Assessment Assessment 1. Near syncope, most probably vasovagal. Telemetry did not show any significant arrhythmias so far. 2. Coronary artery disease s/p coronary artery bypass surgery 10 years ago, presently stable and chest pain-free. Cardiac enzymes negative. Continue current secondary prevention measures. 3. Ischemic cardiomyopathy, chronic systolic heart failure s/p AICD implantation 10 years ago with more recent generator change 2 months ago. We will obtain records from [facility]. 4. ? Paroxysmal atrial fibrillation since patient is on Xarelto. Patient could not give any history of cardiac arrhythmias. We will review records when available from [facility]. EKG showed atrial paced rhythm. 5. Diabetes mellitus type 2: Treat per IM Nicole for DC from cardiac standpoint. Follow-up with primary extension clerk. Comment Review of Relevant I have reviewed the following items berna (where applicable) has been applied. Labs Laboratory Tests Test 09/16/20 04:30 White Blood Count 2.9 x10^3/uL (4.0-11.0) Red Blood Count 2.62 x10^6/uL (3.50-5.40) Hemoglobin 7.6 g/dL (12.0-15.5) Hematocrit 23.6 % (36.0-47.0) Mean Corpuscular Volume 90 fL (79-100) Mean Corpuscular Hemoglobin 29 pg (25-35) Mean Corpuscular Hemoglobin Concent 32 g/dL (31-37) Red Cell Distribution Width 15.9 % (11.5-14.5) Platelet Count 211 x10^3/uL (140-400) Neutrophils (%) (Auto) 42 % (31-73) Lymphocytes (%) (Auto) 43 % (24-48) Monocytes (%) (Auto) 11 % (0-9) Eosinophils (%) (Auto) 4 % (0-3) Basophils (%) (Auto) 1 % (0-3) Neutrophils # (Auto) 1.2 x10^3/uL (1.8-7.7) Lymphocytes # (Auto) 1.3 x10^3/uL (1.0-4.8) Monocytes # (Auto) 0.3 x10^3/uL (0.0-1.1) Eosinophils # (Auto) 0.1 x10^3/uL (0.0-0.7) Basophils # (Auto) 0.0 x10^3/uL (0.0-0.2) Sodium Level 142 mmol/L (136-145) Potassium Level 3.4 mmol/L (3.5-5.1) Chloride Level 107 mmol/L (98-107) Carbon Dioxide Level 23 mmol/L (21-32) Anion Gap 12 (6-14) Blood Urea Nitrogen 23 mg/dL (7-20) Creatinine 1.3 mg/dL (0.6-1.0) Estimated GFR (Cockcroft-Gault) 48.3 BUN/Creatinine Ratio 18 (6-20) Glucose Level 123 mg/dL (70-99) Calcium Level 8.1 mg/dL (8.5-10.1) Total Bilirubin 0.3 mg/dL (0.2-1.0) Aspartate Amino Transf (AST/SGOT) 13 U/L (15-37) Alanine Aminotransferase (ALT/SGPT) 11 U/L (14-59) Alkaline Phosphatase 40 U/L (46-116) Total Protein 6.0 g/dL (6.4-8.2) Albumin 3.0 g/dL (3.4-5.0) Albumin/Globulin Ratio 1.0 (1.0-1.7) Medications Current Medications Acetaminophen/ Codeine Phosphate (Tylenol #3) 1 tab PRN Q6HRS PRN PO MODERATE PAIN; Start 09/15/20 at 15:45 Albuterol Sulfate (Ventolin Neb Soln) 2.5 mg RTQID NEB Last administered on 09/16/20at 07:09; Start 09/15/20 at 16:00 Carvedilol (Coreg) 6.25 mg BIDWMEALS PO ; Start 09/15/20 at 17:00 Famotidine (Pepcid) 40 mg DAILY PO Last administered on 09/16/20at 08:49; Start 09/16/20 at 09:00 Furosemide (Lasix) 40 mg AFTRNOON PO ; Start 09/16/20 at 13:00 Furosemide (Lasix) 80 mg DAILY PO Last administered on 09/16/20at 08:49; Start 09/16/20 at 09:00 Rivaroxaban (Xarelto) 20 mg DAILYWSUP PO ; Start 09/16/20 at 17:00 Rivaroxaban (Xarelto) 20 mg QID PO ; Start 09/15/20 at 17:00; Status UNV Sumatriptan Succinate (Imitrex) 50 mg PRN Q2HR PRN PO MIGRAINE HEADACHE; Start 09/15/20 at 15:45 Tramadol HCl (Ultram) 50 mg PRN Q6HRS PRN PO MILD PAIN 1-3; Start 09/15/20 at 15:45 Vitals/I & O Vital Sign - Last 24 Hours 09/15/20 09/15/20 09/15/20 09/15/20 11:00 11:00 11:00 15:00 Temp 98.7 98.4 98.7 98.4 Pulse 53 56 54 Resp 17 17 B/P (MAP) 102/55 (71) 110/49 (69) 104/57 (73) 111/64 (80) Pulse Ox 93 98 O2 Delivery Room Air Room Air 09/15/20 09/15/20 09/15/20 09/15/20 15:35 16:52 18:01 19:00 Temp 98.8 98.8 Pulse 54 53 Resp 19 B/P (MAP) 111/64 105/55 (72) Pulse Ox 97 97 O2 Delivery Room Air Room Air Room Air 09/15/20 09/15/20 09/15/20 09/16/20 20:00 20:26 23:05 03:14 Temp 98.5 98.0 98.5 98.0 Pulse 54 54 Resp 17 18 B/P (MAP) 104/60 (75) 123/70 (87) Pulse Ox 97 95 100 O2 Delivery Room Air Room Air Room Air Room Air 09/16/20 09/16/20 09/16/20 09/16/20 06:46 07:09 07:16 07:59 Temp 98.1 98.1 Pulse 50 Resp 28 B/P (MAP) 123/65 (84) Pulse Ox 99 97 O2 Delivery Room Air Room Air Room Air Room Air 09/16/20 09/16/20 08:00 08:20 Pulse 50 O2 Delivery Room Air Intake and Output 09/15/20 09/15/20 09/16/20 15:00 23:00 07:00 Intake Total 300 ml 300 ml Output Total 0 ml Balance 300 ml 300 ml 0 ml DIONI CANDELARIA MD Sep 16, 2020 10:38
[2020-09-16 11:34] VITALS: BP 110/65
[2020-09-16] MEDS ORDERED: FUROSEMIDE 40 MG TABLET. PO SCH (13:00)
[2020-09-16] MEDS ORDERED: RIVA15TA PO (13:26)
[2020-09-16 15:00] VITALS: BP 116/65
--- NOTE | 2020-09-16 15:02 | PDOC3 ---
Discharge Summary Visit Information Date of Admission: Sep 15, 2020 Date of Discharge: Sep 16, 2020 Brief Hospital Course Allergies Allergies Coded Allergies Type Severity Reaction Last Updated Verified No Known Drug Allergies 09/14/20 No Vital Signs Vital Signs Date Time Temp Pulse Resp B/P (MAP) Pulse Ox O2 Delivery O2 Flow Rate FiO2 09/16/20 11:34 97.9 55 22 110/65 (80) 100 Room Air 97.9 Lab Results Laboratory Tests Test 09/14/20 23:15 09/15/20 00:23 09/15/20 04:50 09/15/20 09:45 White Blood Count 4.8 x10^3/uL (4.0-11.0) Red Blood Count 2.93 x10^6/uL (3.50-5.40) Hemoglobin 8.7 g/dL (12.0-15.5) Hematocrit 26.3 % (36.0-47.0) Mean Corpuscular Volume 90 fL (79-100) Mean Corpuscular Hemoglobin 30 pg (25-35) Mean Corpuscular Hemoglobin Concent 33 g/dL (31-37) Red Cell Distribution Width 15.5 % (11.5-14.5) Platelet Count 249 x10^3/uL (140-400) Neutrophils (%) (Auto) 64 % (31-73) Lymphocytes (%) (Auto) 26 % (24-48) Monocytes (%) (Auto) 7 % (0-9) Eosinophils (%) (Auto) 2 % (0-3) Basophils (%) (Auto) 1 % (0-3) Neutrophils # (Auto) 3.1 x10^3/uL (1.8-7.7) Lymphocytes # (Auto) 1.2 x10^3/uL (1.0-4.8) Monocytes # (Auto) 0.4 x10^3/uL (0.0-1.1) Eosinophils # (Auto) 0.1 x10^3/uL (0.0-0.7) Basophils # (Auto) 0.1 x10^3/uL (0.0-0.2) Sodium Level 144 mmol/L (136-145) 144 mmol/L (136-145) Potassium Level 3.5 mmol/L (3.5-5.1) 3.8 mmol/L (3.5-5.1) Chloride Level 106 mmol/L (98-107) 108 mmol/L (98-107) Carbon Dioxide Level 23 mmol/L (21-32) 24 mmol/L (21-32) Anion Gap 15 (6-14) 12 (6-14) Blood Urea Nitrogen 24 mg/dL (7-20) 21 mg/dL (7-20) Creatinine 2.0 mg/dL (0.6-1.0) 1.3 mg/dL (0.6-1.0) Estimated GFR (Cockcroft-Gault) 24.3 48.3 BUN/Creatinine Ratio 12 (6-20) Glucose Level 117 mg/dL (70-99) 100 mg/dL (70-99) Calcium Level 8.6 mg/dL (8.5-10.1) 8.3 mg/dL (8.5-10.1) Magnesium Level 1.8 mg/dL (1.8-2.4) Total Bilirubin 0.3 mg/dL (0.2-1.0) Aspartate Amino Transf (AST/SGOT) 12 U/L (15-37) Alanine Aminotransferase (ALT/SGPT) 12 U/L (14-59) Alkaline Phosphatase 42 U/L (46-116) Troponin I Quantitative < 0.017 ng/mL (0.000-0.055) < 0.017 ng/mL (0.000-0.055) < 0.017 ng/mL (0.000-0.055) VU-Mfg-E-Type Natriuretic Peptide 1025 pg/mL (0-449) Total Protein 7.1 g/dL (6.4-8.2) Albumin 3.7 g/dL (3.4-5.0) Albumin/Globulin Ratio 1.1 (1.0-1.7) Lipase 90 U/L (73-393) Prothrombin Time 29.0 SEC (11.7-14.0) Prothromb Time International Ratio 2.8 (0.8-1.1) D-Dimer (Mary) < 0.27 ug/mlFEU Test 09/16/20 04:30 White Blood Count 2.9 x10^3/uL (4.0-11.0) Red Blood Count 2.62 x10^6/uL (3.50-5.40) Hemoglobin 7.6 g/dL (12.0-15.5) Hematocrit 23.6 % (36.0-47.0) Mean Corpuscular Volume 90 fL (79-100) Mean Corpuscular Hemoglobin 29 pg (25-35) Mean Corpuscular Hemoglobin Concent 32 g/dL (31-37) Red Cell Distribution Width 15.9 % (11.5-14.5) Platelet Count 211 x10^3/uL (140-400) Neutrophils (%) (Auto) 42 % (31-73) Lymphocytes (%) (Auto) 43 % (24-48) Monocytes (%) (Auto) 11 % (0-9) Eosinophils (%) (Auto) 4 % (0-3) Basophils (%) (Auto) 1 % (0-3) Neutrophils # (Auto) 1.2 x10^3/uL (1.8-7.7) Lymphocytes # (Auto) 1.3 x10^3/uL (1.0-4.8) Monocytes # (Auto) 0.3 x10^3/uL (0.0-1.1) Eosinophils # (Auto) 0.1 x10^3/uL (0.0-0.7) Basophils # (Auto) 0.0 x10^3/uL (0.0-0.2) Sodium Level 142 mmol/L (136-145) Potassium Level 3.4 mmol/L (3.5-5.1) Chloride Level 107 mmol/L (98-107) Carbon Dioxide Level 23 mmol/L (21-32) Anion Gap 12 (6-14) Blood Urea Nitrogen 23 mg/dL (7-20) Creatinine 1.3 mg/dL (0.6-1.0) Estimated GFR (Cockcroft-Gault) 48.3 BUN/Creatinine Ratio 18 (6-20) Glucose Level 123 mg/dL (70-99) Calcium Level 8.1 mg/dL (8.5-10.1) Total Bilirubin 0.3 mg/dL (0.2-1.0) Aspartate Amino Transf (AST/SGOT) 13 U/L (15-37) Alanine Aminotransferase (ALT/SGPT) 11 U/L (14-59) Alkaline Phosphatase 40 U/L (46-116) Total Protein 6.0 g/dL (6.4-8.2) Albumin 3.0 g/dL (3.4-5.0) Albumin/Globulin Ratio 1.0 (1.0-1.7) Laboratory Tests Test 09/16/20 04:30 White Blood Count 2.9 x10^3/uL (4.0-11.0) Red Blood Count 2.62 x10^6/uL (3.50-5.40) Hemoglobin 7.6 g/dL (12.0-15.5) Hematocrit 23.6 % (36.0-47.0) Mean Corpuscular Volume 90 fL (79-100) Mean Corpuscular Hemoglobin 29 pg (25-35) Mean Corpuscular Hemoglobin Concent 32 g/dL (31-37) Red Cell Distribution Width 15.9 % (11.5-14.5) Platelet Count 211 x10^3/uL (140-400) Neutrophils (%) (Auto) 42 % (31-73) Lymphocytes (%) (Auto) 43 % (24-48) Monocytes (%) (Auto) 11 % (0-9) Eosinophils (%) (Auto) 4 % (0-3) Basophils (%) (Auto) 1 % (0-3) Neutrophils # (Auto) 1.2 x10^3/uL (1.8-7.7) Lymphocytes # (Auto) 1.3 x10^3/uL (1.0-4.8) Monocytes # (Auto) 0.3 x10^3/uL (0.0-1.1) Eosinophils # (Auto) 0.1 x10^3/uL (0.0-0.7) Basophils # (Auto) 0.0 x10^3/uL (0.0-0.2) Sodium Level 142 mmol/L (136-145) Potassium Level 3.4 mmol/L (3.5-5.1) Chloride Level 107 mmol/L (98-107) Carbon Dioxide Level 23 mmol/L (21-32) Anion Gap 12 (6-14) Blood Urea Nitrogen 23 mg/dL (7-20) Creatinine 1.3 mg/dL (0.6-1.0) Estimated GFR (Cockcroft-Gault) 48.3 BUN/Creatinine Ratio 18 (6-20) Glucose Level 123 mg/dL (70-99) Calcium Level 8.1 mg/dL (8.5-10.1) Total Bilirubin 0.3 mg/dL (0.2-1.0) Aspartate Amino Transf (AST/SGOT) 13 U/L (15-37) Alanine Aminotransferase (ALT/SGPT) 11 U/L (14-59) Alkaline Phosphatase 40 U/L (46-116) Total Protein 6.0 g/dL (6.4-8.2) Albumin 3.0 g/dL (3.4-5.0) Albumin/Globulin Ratio 1.0 (1.0-1.7) Brief Hospital Course Ms. Tavarez is a 75 old female who presented with near syncope, likely vasovagal in origin. She received IV fluids in the ER. Consultation was placed to c ardiology. Orthostatic vitals negative. Per cardiology, agrees with vasovagal syncope. Patient okay to discharge from cardiac standpoint and follow-up with primary wildlife biology technician. Discharge Information Condition at Discharge: Stable Follow Up: Weeks Disposition/Orders: D/C to Home Justicifation of Admission Dx: Justifications for Admission: Justification of Admission Dx: Yes JOVANI ECHOLS MD Sep 16, 2020 15:02
[2020-09-16] MEDS ORDERED: FAMO20TA5 PO (15:23)
[2020-09-16] MEDS ORDERED: ALBU2.5V8 NEB (15:23)
[2020-09-16] MEDS ORDERED: SUMA100T3 PO (15:23)
[2020-09-16] MEDS ORDERED: FURO80TA3 PO (15:23)
[2020-09-16] MEDS ORDERED: CARV6.2511 PO (15:23)
[2020-09-16] MEDS ORDERED: FURO40TA4 PO (15:23)
[2020-09-16] MEDS ORDERED: RIVAROXABAN 10 MG TABLET. PO SCH (17:00)
[2020-09-16] MEDS ORDERED: RIVAROXABAN 15 MG TABLET. PO SCH (17:00)
--- NOTE | 2020-09-16 17:00 | NUR ---
Pt left unit at 1650 by wheelchair via private vehicle. Pt's IV removed without complication, VSS. Discharge paperwork discussed with pt, including medications and follow-up. 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 Education handout given on syncope. Additional concerns addressed.
== END 2020-09-16 16:50 | disposition home or self-care (01) ==
LOC: ER 22:58 → ED HOLD 09-15 02:21 → 6 SOUTH 09-15 02:39
PROVIDERS: ADMIT Internal Medicine; ATTEND Internal Medicine
DX: R55 Syncope and collapse (principal); I25.10 Atherosclerotic heart disease of native coronary artery without angina pectoris; I11.0 Hypertensive heart disease with heart failure; I50.22 Chronic systolic (congestive) heart failure; N28.9 Disorder of kidney and ureter, unspecified; I25.2 Old myocardial infarction; I25.5 Ischemic cardiomyopathy; E11.9 Type 2 diabetes mellitus without complications; F17.210 Nicotine dependence, cigarettes, uncomplicated; Z95.0 Presence of cardiac pacemaker
CPT/HCPCS: 36415; 74022; 80048; 80053; 83690; 83735; 83880; 84484; 85025; 85379; 85610; 93005; 94640; 94760; 96360; 96372; 97161; 99285; G0378; J1644; J7030; J7613; G0379